=== PATIENT | female | born 1955 | race Caucasian/White ===

== ENCOUNTER 2017-10-19 05:58 | Emergency (ER) | payer BC ==
--- NOTE | 2017-10-19 06:27 | EDM.PDOC ---
<Rafi Hernandez - Last Filed: 10/19/17 06:35> ED HPI GENERAL MEDICAL PROBLEM - General Chief Complaint: Abdominal Pain Stated Complaint: Abdominal pain Time Seen by Provider: 10/19/17 06:26 Source of Information: Reports: Patient, RN, RN Notes Reviewed History Limitations: Reports: No Limitations - History of Present Illness INITIAL COMMENTS - FREE TEXT/NARRATIVE: Patient presents to the ED at [facility] with a 3 day history of severe epigastric pain. Patient states she has a history of a gastric bypass. Patient states her symptoms are similar to when she had issues with gastric ulcers in the past. She feels very nauseated. Passing lots of gas. No blood in stool. No change with BM's. No vomiting. Patient denies any fevers or chills but states she feels very cold. The epigastric pain does not radiate. Patient denies any UTI symptoms. She is trying to stay well hydrated with good PO fluid intake. No recent infections that she is aware of. No change in eating habits. Denies any recent issues with dumping syndrome. Onset Date: 10/16/17 upper abdomen Pain Score (Numeric/FACES): 10 - Related Data Allergies Allergy/AdvReac Type Severity Reaction Status Date / Time Unable to Assess Allergy Unverified 10/19/17 06:22 Home Meds: Home Meds . [Unable to Verify Home Med List] 10/19/17 [History] ED ROS GENERAL - Review of Systems Review Of Systems: See Below Constitutional: Denies: Fever, Chills, Weakness Respiratory: Denies: Shortness of Breath, Cough Cardiovascular: Denies: Chest Pain, Palpitations GI/Abdominal: Reports: Abdominal Pain, Flatus, Nausea. Denies: Constipation, Diarrhea, Vomiting Skin: Reports: No Symptoms Neurological: Reports: No Symptoms ED EXAM, GI/ABD - Physical Exam Exam: See Below Exam Limited By: No Limitations General Appearance: Alert, No Apparent Distress Respiratory/Chest: No Respiratory Distress, Lungs Clear, Normal Breath Sounds Cardiovascular: Normal Peripheral Pulses, Regular Rate, Rhythm GI/Abdominal Exam: Soft, Guarding, Tender (epigastric), Abnormal Bowel Sounds ( Hypoactive). No: Distended Neurological: Alert, Oriented Skin Exam: Warm, Dry, Intact, Normal Color Course - Vital Signs Last Recorded V/S: Last Vital Signs Temp 36.6 C 10/19/17 06:00 Pulse 64 10/19/17 07:02 Resp 16 10/19/17 07:02 BP 150/78 H 10/19/17 07:02 Pulse Ox 97 10/19/17 07:02 - Orders/Labs/Meds Orders: Active Orders 24 hr Category Date Time Status EKG Documentation Completion [RC] STAT Care 10/19/17 07:09 Active Abdomen 2V AP Flat Upright [CR] Stat Exams 10/19/17 06:40 Taken Peripheral IV Insertion Adult [OM.PC] Routine Oth 10/19/17 06:33 Ordered Labs: Laboratory Tests 10/19/17 10/19/17 10/19/17 Range/Units 06:43 06:43 06:43 WBC 7.9 (4.0-10.0) x10^3/uL RBC 4.36 (4.00-5.50) x10^6/uL Hgb 13.5 (12.0-16.0) g/dL Hct 38.3 (33.0-47.0) % MCV 87.8 (78.0-93.0) fL MCH 31.0 (26.0-32.0) pg MCHC 35.2 (32.0-36.0) g/dL RDW Coeff of Raúl 12.3 (10.0-15.0) % Plt Count 314 (130-400) x10^3/uL Neut % (Auto) 62.1 (50.0-80.0) % Lymph % (Auto) 24.8 L (25.0-50.0) % [place] % (Auto) 11.2 H (2.0-11.0) % Eos % (Auto) 1.4 (0.0-4.0) % Baso % (Auto) 0.5 (0.2-1.2) % Sodium 127 L* (136-145) mmol/L Potassium 3.9 (3.5-5.1) mmol/L Chloride 94 L (98-107) mmol/L Carbon Dioxide 28 (21-32) mmol/L Anion Gap 8.9 L (10-20) mmol/L BUN 5 L (7-18) mg/dL Creatinine 0.7 (0.55-1.02) mg/dL Est Cr Clr Drug Dosing 67.16 mL/min Estimated GFR (MDRD) > 60 Glucose 96 (74-106) mg/dL Calcium 8.9 (8.5-10.1) mg/dL Troponin I < 0.017 (<=0.056) ng/mL Amylase 26 (25-115) U/L Lipase 53 L (73-393) U/L Urine Color (YELLOW) Urine Appearance (CLEAR) Urine pH (5.0-8.0) Ur Specific [place] Urine Protein (NEGATIVE) mg/dL Urine Glucose (UA) (NEGATIVE) mg/dL Urine Ketones (NEGATIVE) mg/dL Urine Occult Blood (NEGATIVE) Urine Nitrite (NEGATIVE) Urine Bilirubin (NEGATIVE) Urine Urobilinogen (0.2) EU/dL Ur Leukocyte Esterase (NEGATIVE) 10/19/17 Range/Units 07:20 WBC (4.0-10.0) x10^3/uL RBC (4.00-5.50) x10^6/uL Hgb (12.0-16.0) g/dL Hct (33.0-47.0) % MCV (78.0-93.0) fL MCH (26.0-32.0) pg MCHC (32.0-36.0) g/dL RDW Coeff of Raúl (10.0-15.0) % Plt Count (130-400) x10^3/uL Neut % (Auto) (50.0-80.0) % Lymph % (Auto) (25.0-50.0) % [place] % (Auto) (2.0-11.0) % Eos % (Auto) (0.0-4.0) % Baso % (Auto) (0.2-1.2) % Sodium (136-145) mmol/L Potassium (3.5-5.1) mmol/L Chloride (98-107) mmol/L Carbon Dioxide (21-32) mmol/L Anion Gap (10-20) mmol/L BUN (7-18) mg/dL Creatinine (0.55-1.02) mg/dL Est Cr Clr Drug Dosing mL/min Estimated GFR (MDRD) Glucose (74-106) mg/dL Calcium (8.5-10.1) mg/dL Troponin I (<=0.056) ng/mL Amylase (25-115) U/L Lipase (73-393) U/L Urine Color Yellow (YELLOW) Urine Appearance Clear (CLEAR) Urine pH 7.5 (5.0-8.0) Ur Specific [place] 1.020 Urine Protein Trace H (NEGATIVE) mg/dL Urine Glucose (UA) Negative (NEGATIVE) mg/dL Urine Ketones Negative (NEGATIVE) mg/dL Urine Occult Blood Negative (NEGATIVE) Urine Nitrite Negative (NEGATIVE) Urine Bilirubin Negative (NEGATIVE) Urine Urobilinogen 1.0 (0.2) EU/dL Ur Leukocyte Esterase Small H (NEGATIVE) Meds: Medications Discontinued Medications Generic Name Dose Route Start Last Admin Trade Name Freq PRN Reason Stop Dose Admin Al Hydroxide/Mg Hydroxide 30 ml 10/19/17 06:33 10/19/17 06:50 Gi Cocktail PO 10/19/17 06:34 30 ml ONETIME ONE Administration Famotidine 20 mg 10/19/17 06:34 10/19/17 07:10 Pepcid IVPUSH 10/19/17 06:35 20 mg ONETIME ONE Administration Sodium Chloride 1,000 mls @ 999 mls/hr 10/19/17 06:33 10/19/17 06:45 Normal Saline IV 10/19/17 07:33 999 mls/hr ONETIME ONE Administration Metoclopramide HCl 10 mg 10/19/17 06:34 10/19/17 06:55 Reglan IVPUSH 10/19/17 06:35 10 mg ONETIME ONE Administration Ondansetron HCl 4 mg 10/19/17 06:34 10/19/17 06:50 Zofran IVPUSH 10/19/17 06:35 4 mg ONETIME ONE Administration Pantoprazole Sodium 40 mg 10/19/17 06:34 10/19/17 07:02 Protonix Iv IVPUSH 10/19/17 06:35 40 mg ONETIME ONE Administration Sodium Chloride 10 ml 10/19/17 06:33 Saline Flush FLUSH ASDIRECTED PRN Keep Vein Open Departure - Departure Disposition: Home, Self-Care 01 Clinical Impression: Esophagitis - Discharge Information Instructions: Hyponatremia, [id number] Referrals: PCP,Not In Area [Primary Care Provider] - Forms: ED Department Discharge Additional Instructions: Sodium chloride tabs 1 twice daily for 5 days. Follow-up in the clinic in 5-7 days for recheck. Return to ER if you have worsening chest pain/upper abdominal pain, shortness of breath, or lightheadedness. Continue with current medications. - Problem List Review Problem List Initiated/Reviewed/Updated: Yes - My Orders Last 24 Hours: My Active Orders 10/19/17 07:09 EKG Documentation Completion [RC] STAT - Assessment/Plan Last 24 Hours: My Active Orders 10/19/17 07:09 EKG Documentation Completion [RC] STAT <ChayalfonsoMichael W - Last Filed: 10/19/17 12:06> ED EXAM, GI/ABD - Physical Exam Extremities: Normal Inspection, Normal Range of Motion, No Pedal Edema Psychiatric: Normal Affect, Normal Mood EKG INTERPRETATION EKG Date: 10/19/17 Rhythm: NSR [place]: Normal P-Wave: Present QRS: Normal ST-T: Normal QT: Normal Course - Re-Assessments/Exams Free Text/Narrative Re-Assessment/Exam: 10/19/17 0800 After treatment, pt. reported a marked improvement in her discomfort, and rated it at approx. a "1" on the severity scale and requested discharge. Departure - Departure Time of Disposition: 08:30 Condition: Good - Assessment/Plan Assessment:: Epigastric pain, likely due to esophagitis. Plan: Pt. will be discharge. Continue with current medications. Pt. states that she was outside all day yesterday, and also has had problems with post gastic bypass malabsorption problems. Will start the pt. on sodium chloride 100mg twice daily for the next 5 days, and have her sodium rechecked in he clinic in a week.
[2017-10-19] MEDS ORDERED: GI Cocktail Oral Solution 30 ML PO ONE (06:33)
[2017-10-19] MEDS ORDERED: Sodium Chloride 0.9% 10 ML Syringe FLUSH PRN (06:33)
[2017-10-19] MEDS ORDERED: Sodium Chloride 0.9% 1,000 ML IV ONE (06:33)
[2017-10-19] MEDS ORDERED: Metoclopramide 10 MG/2 ML SDV IVPUSH ONE (06:34)
[2017-10-19] MEDS ORDERED: Famotidine 20 MG/2 ML SDV IVPUSH ONE (06:34)
[2017-10-19] MEDS ORDERED: Ondansetron 4 MG/2 ML SDV IVPUSH ONE (06:34)
[2017-10-19] MEDS ORDERED: Pantoprazole 40 MG Vial IVPUSH ONE (06:34)
[2017-10-19 07:08] LABS: CHLORIDE,CL 94 mmol/L (98-107)
[2017-10-19 07:14] LABS: SODIUM,NA 127 mmol/L (136-145)
== END 2017-10-19 08:20 | disposition home or self-care (01) ==
LOC: VM.ED 05:58
DX: K20.9 Esophagitis, unspecified (principal); Z98.84 Bariatric surgery status
CPT/HCPCS: 36415; 74019; 80048; 81003; 82150; 83690; 84484; 85025; 96361; 96374; 96375; 99284; A9270-GY; C9113; J2405; J2765; J7030; S0028